=== PATIENT | female | born 1985 | race Caucasian/White ===

== ENCOUNTER 2016-11-22 23:06 | Emergency (ER) | payer OTHER | END 2016-11-23 03:09 | disposition home or self-care (01) | LOC: ER 23:06 | DX: R51 Headache (principal); F17.210 Nicotine dependence, cigarettes, uncomplicated; Z98.51 Tubal ligation status; Z79.899 Other long term (current) drug therapy; Z88.5 Allergy status to narcotic agent; Z91.040 Latex allergy status ==